=== PATIENT | female | born 1935 | race African-American/Black ===

== ENCOUNTER 2018-03-02 14:37 | Emergency (ER) | payer MEDICARE, MEDICAID ==
[~2018-03-02] VITALS: Ht 162.6 cm; Wt 58.0 kg
[2018-03-02 17:32] LABS: HEMATOCRIT. 39.7 % (36.0-48.0); HEMOGLOBIN. 13.1 g/dL (12.0-16.0); MEAN CORPUSCULAR HEMOGLOBIN 29.1 pg (28.0-32.0); MEAN CORPUSCULAR VOLUME 88.2 fL (81.0-99.0); MEAN PLATELET VOLUME 7.7 fl (7.4-10.4); PLATELET 277 x1000/uL (130-400); RED CELL DISTRIBUTION WIDTH 13.9 % (11.6-14.6)
[2018-03-02 17:37] LABS: CHLORIDE 101 mEq/L (98-107)
[2018-03-02 17:42] LABS: PLATELET ESTIMATE NORMAL
[2018-03-02 19:02] VITALS: BP 124/72
== END 2018-03-02 19:03 | disposition home or self-care (01) ==
LOC: ER 15:06
DX: S00.83XA Contusion of other part of head, initial encounter (principal); I10 Essential (primary) hypertension; Z88.0 Allergy status to penicillin; Z88.2 Allergy status to sulfonamides; Y92.480 Sidewalk as the place of occurrence of the external cause; W01.198A Fall on same level from slipping, tripping and stumbling with subsequent striking against other object, initial encounter; Y93.89 Activity, other specified; Y92.89 Other specified places as the place of occurrence of the external cause; Y99.8 Other external cause status
CPT/HCPCS: 36415; 70450; 80053; 82962; 84484; 85025; 93005; 99285

== ENCOUNTER 2019-09-25 14:48 | Emergency (ER) | payer OTHER, MEDICAID ==
[~2019-09-25] VITALS: Ht 162.6 cm; Wt 60.0 kg
[2019-09-25] MEDS ORDERED: SODIUM CHLORIDE 0.9% 1,000 ML IV ONE (15:30)
[2019-09-25 16:24] LABS: BASOPHILS % 0.8 % (0.0-2.0); EOSINOPHILS % 1.2 % (0.0-5.0); HEMATOCRIT. 40.5 % (36.0-48.0); HEMOGLOBIN. 13.4 g/dL (12.0-16.0); LYMPHOCYTES % 14.5 % (20.0-50.0); MEAN CORPUSCULAR HEMOGLOBIN 29.8 pg (28.0-32.0); MONOCYTES % 3.9 % (2.0-8.0); NEUTROPHILS % 79.6 % (40.0-76.0); PLATELET 290 x1000/uL (130-400); RED CELL DISTRIBUTION WIDTH 13.9 % (11.6-14.6)
[2019-09-25 16:25] LABS: CHLORIDE 106 mEq/L (98-107)
[2019-09-25 21:18] VITALS: BP 124/72
== END 2019-09-25 21:28 | disposition left against medical advice (07) ==
LOC: ER 14:48 → CANBEDREQ 22:08
DX: R55 Syncope and collapse (principal); I35.0 Nonrheumatic aortic (valve) stenosis; E87.6 Hypokalemia; D72.829 Elevated white blood cell count, unspecified; I10 Essential (primary) hypertension; E78.00 Pure hypercholesterolemia, unspecified; R79.89 Other specified abnormal findings of blood chemistry; Z88.0 Allergy status to penicillin; Z88.2 Allergy status to sulfonamides
CPT/HCPCS: 36415; 71045; 80053; 82962; 83880; 84484; 85025; 93005; 96360; 99284; J7030